=== PATIENT | male | born 2000 | race Caucasian/White ===

== ENCOUNTER → 2019-01-15 | Outpatient (CLI) | payer BC ==
[~2019-01-15] MED LIST: ESCI20TA38 PO; PANT40TA65 PO
[2019-01-15 10:53] LABS: PLATELET COUNT, AUTOMATED 296 K/uL (150-450)
--- NOTE | 2019-01-15 14:09 | RADIOLOGY IMAGING REPORT ---
FACILITY: [facility] PATIENT NAME: Lamberto Lopez : 2000 MR: [id number] V: [id number] EXAM DATE: ORDERING PHYSICIAN: ANTHONY SCHMITZ TECHNOLOGIST: Location: [facility] - [place] Patient: Lamberto Lopez : 2000 Visit/Account:[id number] Date of Sevice: 01/15/2019 Exam type: KUB SINGLE VIEW ABDOMEN History: abdominal pain and bloating x1 year Comparison: None. Findings: There is a nonspecific bowel gas pattern present. There is no gross evidence organomegaly or patholo gic intra-abdominal calcifications. The visualized bones are unremarkable for age. IMPRESSION: 1. Nonspecific bowel gas pattern Report Dictated By: Hanna Dozier MD at 01/15/2019 1:54 PM Report E-Signed By: Hanna Dozier MD at 01/15/2019 2:05 PM WSN:[email or web address]
== END ==
LOC: LAB 10:37
PROVIDERS: ATTEND Internal Medicine
DX: F41.9 Anxiety disorder, unspecified (principal); F32.9 Major depressive disorder, single episode, unspecified; R10.9 Unspecified abdominal pain; K21.9 Gastro-esophageal reflux disease without esophagitis
CPT/HCPCS: 36415; 74018; 81001; 82040; 82150; 82247; 82310; 82374; 82435; 82565; 82947; 83690; 84075; 84132; 84155; 84295; 84443; 84450; 84460; 84520; 85025

== ENCOUNTER → 2019-01-21 | Outpatient (REF) | payer BC | LOC: ZZSTITCHES 18:59 | PROVIDERS: ATTEND Physician Assistant | DX: R10.816 Epigastric abdominal tenderness (principal); R19.7 Diarrhea, unspecified | CPT/HCPCS: 87338 ==

== ENCOUNTER 2019-01-24 14:46 | Emergency (ER) | payer BC ==
--- NOTE | 2019-01-24 15:05 | ER Report ---
History and Physical Time Seen By MD: 15:05 HPI/ROS CHIEF COMPLAINT: Near syncopal episode 2 HISTORY OF PRESENT ILLNESS: 18-year-old male patient presents to emergency room with complaint of near several episodes 2. Patient states that he started feeling funny when he was driving to work. He states when he got work he informed us coordinate that he was not doing well. He states that he had something to drink and passed out. He states he did not fall completely. However he then went to the bathroom. He states that these in the bathroom he fell getting off the toilet. He states that at the behest of his coworkers he did come in the emergency room to be evaluated. Patient states that he has not been eating or drinking well for the past several weeks. He states that he has problems with his abdomen. He states his started on Lexapro and a PPI to help with that. He states that he has had very mild improvement since starting medications. He states he still struggles to eat or drink much throughout the day. He states that typically he will eat a hot pocket or something of that size and held typically be it throughout the day. REVIEW OF SYSTEMS: Respiratory: No cough, no dyspnea. Cardiovascular: No chest pain, no palpitations. Gastrointestinal: As noted above Musculoskeletal: No back pain. Allergies: Coded Allergies: No Known Allergies (Verified Allergy, Unknown, 01/24/19) Home Meds Active Scripts Hydroxyzine Hcl (HYDROXYZINE HCL) 25 Mg Tablet, 25 MG PO Q6H PRN for ANXIETY, #30 TAB Prov:GILLIAN NETTLES 01/24/19 Escitalopram Oxalate (LEXAPRO) 20 Mg Tablet, 10 MG PO QDAY, #30 TAB 2 Refills Prov:ANTHONY SCHMITZ MD 01/16/19 Pantoprazole Sodium (PANTOPRAZOLE SODIUM) 40 Mg Tablet.dr, 40 MG PO QDAY, #30 TAB 2 Refills Prov:ANTHONY SCHMITZ MD 01/16/19 Reported Medications Promethazine Hcl (PROMETHAZINE HCL) 25 Mg Tablet, 25 MG PO Q8H PRN for NAUSEA, TAB 01/24/19 Escitalopram Oxalate (LEXAPRO) 20 Mg Tablet, 10 MG PO QDAY, TAB 01/24/19 Past Medical/Surgical History Patient has a past medical history of irregular heartbeat, marijuana use, alcohol use, depression, generalized anxiety disorder. Patient has a surgical history of was some teeth removal. Reviewed Nurses Notes: Yes Hx Substance Use Disorder: Yes (MARIJUANA ) Hx Alcohol Use: Yes (OCCASIONALLY 1 TIME MONTHLY ) Constitutional Vital Sign - Last 24 Hours 01/24/19 01/24/19 01/24/19 01/24/19 14:59 15:16 15:20 15:46 Temp 97.5 Pulse 77 74 75 Resp 12 B/P (MAP) 132/93 (106) 132/93 Pulse Ox 96 96 93 O2 Delivery Room Air 01/24/19 01/24/19 01/24/19 01/24/19 15:51 16:02 16:21 16:30 Pulse 74 84 B/P (MAP) 116/77 (90) 124/80 (95) Pulse Ox 97 97 01/24/19 01/24/19 16:51 17:00 Pulse 66 B/P (MAP) 117/70 (86) Pulse Ox 93 Physical Exam General Appearance: The patient is alert, has no immediate need for airway protection and no current signs of toxicity. Respiratory: Chest is non tender, lungs are clear to auscultation. Cardiac: regular rate and rhythm Gastrointestinal: Abdomen is soft and non tender, no masses, bowel sounds normal. Musculoskeletal: Neck: Neck is supple and non tender. Extremities have full range of motion and are non tender. Skin: No rashes or lesions. DIFFERENTIAL DIAGNOSIS: After history and physical exam differential diagnosis was considered for syncope including but not limited to vasovagal syncope, arrhythmia, dehydration, and blood loss. Medical Decision Making Data Points Result Diagram: 01/24/19 1608 01/24/19 1608 Laboratory Hematology Test 01/24/19 14:59 01/24/19 16:08 Urine Color Colorless Urine Clarity Clear Urine pH 7.0 pH (4.8-9.5) Urine Specific [place] 1.002 Urine Protein Negative mg/dL (NEGATIVE) Urine Glucose (UA) Negative mg/dL (NEGATIVE) Urine Ketones Negative mg/dL (NEGATIVE) Urine Blood Small (NEGATIVE) Urine Nitrite Negative (NEGATIVE) Urine Bilirubin Negative (NEGATIVE) Urine Urobilinogen Negative mg/dL (0.2-1.9) Urine Leukocyte Esterase Negative (NEGATIVE) Urine RBC None /HPF (0-2/HPF) Urine WBC <1 /HPF (0-5/HPF) Urine Squamous Epithelial Cells Few /LPF (</=FEW) Urine Bacteria Negative /HPF (NONE-FEW) Urine Mucus None /HPF (NONE-FEW) Red Blood Count 5.70 M/uL (4.00-5.60) Mean Corpuscular Volume 86.7 fL (80.0-96.0) Mean Corpuscular Hemoglobin 29.9 pg (26.0-33.0) Mean Corpuscular Hemoglobin Concent 34.5 g/dL (32.0-36.0) Red Cell Distribution Width 14.2 % (11.5-14.5) Mean Platelet Volume 7.9 fL (7.2-11.1) Neutrophils (%) (Auto) 65.5 % (39.4-72.5) Lymphocytes (%) (Auto) 27.8 % (17.6-49.6) Monocytes (%) (Auto) 6.2 % (4.1-12.4) Eosinophils (%) (Auto) 0.1 % (0.4-6.7) Basophils (%) (Auto) 0.4 % (0.3-1.4) Nucleated RBC Relative Count (auto) 0.0 /100WBC Neutrophils # (Auto) 5.7 K/uL (2.0-7.4) Lymphocytes # (Auto) 2.4 K/uL (1.3-3.6) Monocytes # (Auto) 0.5 K/uL (0.3-1.0) Eosinophils # (Auto) 0.0 K/uL (0.0-0.5) Basophils # (Auto) 0.0 K/uL (0.0-0.1) Nucleated RBC Absolute Count (auto) 0.00 K/uL Sodium Level 143 mmol/L (137-145) Potassium Level 3.9 mmol/L (3.5-5.0) Chloride Level 108 mmol/L (98-107) Carbon Dioxide Level 23 mmol/L (22-30) Blood Urea Nitrogen 11 mg/dl (9-21) Creatinine 0.70 mg/dl (0.66-1.25) Glomerular Filtration Rate Calc > 60.0 Random Glucose 88 mg/dl (75-110) Calcium Level 10.0 mg/dl (8.4-10.2) Total Bilirubin 1.1 mg/dl (0.2-1.3) Aspartate Amino Transf (AST/SGOT) 21 U/L (0-35) Alanine Aminotransferase (ALT/SGPT) 12 U/L (0-56) Alkaline Phosphatase 81 U/L (0-126) Total Protein 8.1 g/dl (6.3-8.2) Albumin 5.0 g/dl (3.5-5.0) Lipase 64 U/L (23-300) Chemistry Test 01/24/19 14:59 01/24/19 16:08 Urine Color Colorless Urine Clarity Clear Urine pH 7.0 pH (4.8-9.5) Urine Specific [place] 1.002 Urine Protein Negative mg/dL (NEGATIVE) Urine Glucose (UA) Negative mg/dL (NEGATIVE) Urine Ketones Negative mg/dL (NEGATIVE) Urine Blood Small (NEGATIVE) Urine Nitrite Negative (NEGATIVE) Urine Bilirubin Negative (NEGATIVE) Urine Urobilinogen Negative mg/dL (0.2-1.9) Urine Leukocyte Esterase Negative (NEGATIVE) Urine RBC None /HPF (0-2/HPF) Urine WBC <1 /HPF (0-5/HPF) Urine Squamous Epithelial Cells Few /LPF (</=FEW) Urine Bacteria Negative /HPF (NONE-FEW) Urine Mucus None /HPF (NONE-FEW) White Blood Count 8.7 k/uL (4.5-11.0) Red Blood Count 5.70 M/uL (4.00-5.60) Hemoglobin 17.0 g/dL (14.0-18.0) Hematocrit 49.4 % (42.0-52.0) Mean Corpuscular Volume 86.7 fL (80.0-96.0) Mean Corpuscular Hemoglobin 29.9 pg (26.0-33.0) Mean Corpuscular Hemoglobin Concent 34.5 g/dL (32.0-36.0) Red Cell Distribution Width 14.2 % (11.5-14.5) Platelet Count 299 K/uL (150-450) Mean Platelet Volume 7.9 fL (7.2-11.1) Neutrophils (%) (Auto) 65.5 % (39.4-72.5) Lymphocytes (%) (Auto) 27.8 % (17.6-49.6) Monocytes (%) (Auto) 6.2 % (4.1-12.4) Eosinophils (%) (Auto) 0.1 % (0.4-6.7) Basophils (%) (Auto) 0.4 % (0.3-1.4) Nucleated RBC Relative Count (auto) 0.0 /100WBC Neutrophils # (Auto) 5.7 K/uL (2.0-7.4) Lymphocytes # (Auto) 2.4 K/uL (1.3-3.6) Monocytes # (Auto) 0.5 K/uL (0.3-1.0) Eosinophils # (Auto) 0.0 K/uL (0.0-0.5) Basophils # (Auto) 0.0 K/uL (0.0-0.1) Nucleated RBC Absolute Count (auto) 0.00 K/uL Glomerular Filtration Rate Calc > 60.0 Calcium Level 10.0 mg/dl (8.4-10.2) Total Bilirubin 1.1 mg/dl (0.2-1.3) Aspartate Amino Transf (AST/SGOT) 21 U/L (0-35) Alanine Aminotransferase (ALT/SGPT) 12 U/L (0-56) Alkaline Phosphatase 81 U/L (0-126) Total Protein 8.1 g/dl (6.3-8.2) Albumin 5.0 g/dl (3.5-5.0) Lipase 64 U/L (23-300) Urinalysis Test 01/24/19 14:59 Urine Color Colorless Urine Clarity Clear Urine pH 7.0 pH (4.8-9.5) Urine Specific [place] 1.002 Urine Protein Negative mg/dL (NEGATIVE) Urine Glucose (UA) Negative mg/dL (NEGATIVE) Urine Ketones Negative mg/dL (NEGATIVE) Urine Blood Small (NEGATIVE) Urine Nitrite Negative (NEGATIVE) Urine Bilirubin Negative (NEGATIVE) Urine Urobilinogen Negative mg/dL (0.2-1.9) Urine Leukocyte Esterase Negative (NEGATIVE) Urine RBC None /HPF (0-2/HPF) Urine WBC <1 /HPF (0-5/HPF) Urine Squamous Epithelial Cells Few /LPF (</=FEW) Urine Bacteria Negative /HPF (NONE-FEW) Urine Mucus None /HPF (NONE-FEW) EKG/Imaging Imaging Exam type: CHEST PA LAT History: Syncope Comparison: None. Findings: The lungs are free of acute effusions, infiltrates or edema. There is no evidence of a pneumothorax or pneumomediastinum. The cardiac silhouette is normal in size. The trachea is in midline. IMPRESSION: 1. No acute cardiopulmonary process is seen Report Dictated By: Hanna Dozier MD at 01/24/2019 3:59 PM Report E-Signed By: Hanna Dozier MD at 01/24/2019 4:00 PM ED Course/Re-evaluation ED Course Patient was admitted to exam room, history and physical were obtained. Differential diagnoses were considered. On examination lungs are clear, heart is regular, abdomen soft nontender. A CBC, CMP, chest x-ray, EKG were done. Lab results and imaging results were unremarkable. I discussed the findings with the patient. I did explain to him that I believe that his issues are more related to his anxiety. I think that it was anxiety that caused him to have numbness. We also discussed the episodes of near-syncope as being related to vasovagal s yncope. Patient verbalized understanding and agreement. He states he did feel significantly better after the fluids and the workup. We will go ahead and discharge patient home. I. He is to return if condition worsens. I would like him follow-up with his primary care provider in the next week. Patient verbalized understanding and agreement with plan. Decision to Disposition Date: Jan 24, 2019 Decision to Disposition Time: 17:14 Depart Departure Latest Vital Signs Vital Signs Date Time Temp Pulse Resp B/P (MAP) Pulse Ox O2 Delivery O2 Flow Rate FiO2 01/24/19 17:00 117/70 (86) 01/24/19 16:51 66 93 01/24/19 15:20 97.5 12 Room Air Impression: Primary Impression: Anxiety Condition: Improved Disposition: HOME OR SELF-CARE Referrals: ANTHONY SCHMITZ MD (PCP) New Scripts Hydroxyzine Hcl (HYDROXYZINE HCL) 25 Mg Tablet 25 MG PO Q6H PRN for ANXIETY, #30 TAB Prov: GILLIAN NETTLES 01/24/19 Patient Instructions: Anxiety (ED) Additional Instructions: Get plenty of rest. Increase fluid intake. Try to use your relaxation techniques. Return to the ER if condition worsens. Follow up with your primary care provider in the next 1-2 weeks. GILLIAN NETTLES Jan 24, 2019 15:05
[2019-01-24] MEDS ORDERED: ESCI20TA38 PO (15:19)
[2019-01-24] MEDS ORDERED: PROM-110 PO (15:19)
[2019-01-24] MEDS ORDERED: NS(*) 0.9% 1000 ML BAG 1,000 ML IV ONE (15:33)
--- NOTE | 2019-01-24 16:05 | RADIOLOGY IMAGING REPORT ---
FACILITY: PATIENT NAME: Lamberto Lopez : 2000 MR: [id number] V: [id number] EXAM DATE: [id number] ORDERING PHYSICIAN: GILLIAN NETTLES TECHNOLOGIST: Location: [facility] - [place] Patient: Lamberto Lopez : 2000 Visit/Account:[id number] Date of Sevice: 01/24/2019 Exam type: CHEST PA LAT History: Syncope Comparison: None. Findings: The lungs are free of acute effusions, infiltrates or edema. There is no evidence of a pneumothorax or pneumomediastinum. The cardiac silhouette is normal in size. The trachea is in midline. IMPRESSION: 1. No acute cardiopulmonary process is seen Report Dictated By: Hanna Dozier MD at 01/24/2019 3:59 PM Report E-Signed By: Hanna Dozier MD at 01/24/2019 4:00 PM WSN:[email or web address]
[2019-01-24 16:18] LABS: PLATELET COUNT, AUTOMATED 299 K/uL (150-450)
--- NOTE | 2019-01-24 16:41 | EKG ---
FACILITY: [facility] PATIENT NAME: JOSE DE LEÓN : [id number] MR: [id number] V: [id number] EXAM DATE: ORDERING PHYSICIAN: GILLIAN NETTLES TECHNOLOGIST: Test Reason : syncope Blood Pressure : / mmHG Vent. Rate : 074 BPM Atrial Rate : 074 BPM P-R Int : 138 ms QRS Dur : 090 ms QT Int : 422 ms P-R-T Axes : 077 090 072 degrees QTc Int : 468 ms Normal sinus rhythm Normal ECG No previous ECGs available Confirmed by Wilbur Montemayor ([id number]) on 01/24/2019 7:28:57 PM Referred By: Confirmed By:Wilbur Garcia
[2019-01-24 17:00] VITALS: BP 117/70
[2019-01-24] MEDS ORDERED: HYDR-4225 PO (17:13)
== END 2019-01-24 17:24 | disposition home or self-care (01) ==
LOC: ER 15:08
DX: F41.9 Anxiety disorder, unspecified (principal); R56.9 Unspecified convulsions
CPT/HCPCS: 71046; 81001; 83690; 85025; 93005; 96360; 99284; J7030; 82040; 82247; 82310; 82374; 82435; 82565; 82947; 84075; 84132; 84155; 84295; 84450; 84460; 84520

== ENCOUNTER 2019-01-27 13:36 | Emergency (ER) | payer BC ==
[~2019-01-27 13:36] MED LIST changes: +HYDR-4225 PO; +PROM-110 PO
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
[2019-01-27 15:03] LABS: PLATELET COUNT, AUTOMATED 287 K/uL (150-450)
[2019-01-27 16:00] VITALS: BP 135/90
[2019-01-28] MEDS ORDERED: LACT1CAP4 PO (13:03)
== END 2019-01-27 16:06 ==
LOC: ER 13:48
DX: F41.9 Anxiety disorder, unspecified (principal); F32.9 Major depressive disorder, single episode, unspecified; R45.851 Suicidal ideations
CPT/HCPCS: 80305; 80320; 80329; 81001; 82040; 82247; 82310; 82374; 82435; 82565; 82947; 83735; 84075; 84132; 84155; 84295; 84443; 84450; 84460; 84520; 85025; 99284

== ENCOUNTER 2019-01-27 15:42 | Inpatient (IN) | payer BC ==
[~2019-01-27] VITALS: Ht 170.2 cm; Wt 57.2 kg
[2019-01-27] MEDS ORDERED: ACETAMINOPHEN 325 MG TAB PO PRN (16:05)
[2019-01-27] MEDS ORDERED: MAG HYD/AL HYD/SIMETH 30ML UDC PO PRN (16:05)
[2019-01-27 16:25] VITALS: BP 115/73
[2019-01-27] MEDS ORDERED: NICOTINE CARTRIDGE 1 EA PO PRN (16:25)
[2019-01-27] MEDS: NICOTINE INH SYSTEM 10 MG/INH INH PRN (16:59)
[2019-01-27] MEDS: hydrOXYzine PAMOATE 25 MG CAP PO PRN (21:02)
[2019-01-28 06:14] VITALS: BP 99/57
[2019-01-28] MEDS: MULTIVITAMINS TAB PO SCH (09:03)
[2019-01-28] MEDS: PANTOPRAZOLE SOD 40 MG TABEC PO SCH (09:03)
[2019-01-28] MEDS: ESCITALOPRAM OXALATE 10 MG TAB PO SCH (09:03)
[2019-01-28 11:04] VITALS: BP 97/62
[2019-01-28] MEDS ORDERED: PROMETHAZINE HCL 25 MG TAB PO PRN (11:45)
[2019-01-28] MEDS ORDERED: LACT1CAP4 PO (13:03)
[2019-01-28] MEDS: NICOTINE INH SYSTEM 10 MG/INH INH PRN ×2 (16:57→19:23)
[2019-01-28 21:56] VITALS: BP 128/87
--- NOTE | 2019-01-28 22:18 | HISTORY AND PHYSICAL ---
DATE OF ADMISSION: January 27, 2019 ATTENDING PHYSICIAN Monique Delgado MD The patient was interviewed on 01/28/2019 at 11 a.m. for this history and physical. CHIEF COMPLAINT "I was worried that I was going to kill myself by taking an overdose on hydroxyzine." HISTORY OF PRESENT ILLNESS This is the first psychiatric hospitalization for this 18-year-old male who has a history of depression, anxiety, and borderline personality, and who is here on a voluntary basis for suicidal ideation. The patient says that over the past three years, he has struggled with depression which comes and goes, and when his depression is significant, he often gets suicidal thoughts. For the past few days, he has been more depressed and having thoughts of taking an overdose. He has been thinking more about and thinking that if he does not kill himself now, he still might when he is an adult, kind of like Eddie Kirk. He is currently rating his depression at a 7/10 and anxiety at a 9/10. He says his depression and anxiety both get worse at night, and he has difficulty sleeping. He reports panic attacks at times where he breaks out in hives. He has recently had a lot of trouble with an upset stomach, and he is wondering if that may be in part due to anxiety and depression. He has been a significant daily cannabis user for a couple of years now, and two weeks ago, he stopped using cannabis because the doctor thought that his abdominal pain might be due to cannabis hyperemesis. He says his GI problems have gotten a little bit better since cutting down on cannabis, but they are still significant with a lot of dry heaves and abdominal pain. PAST PSYCHIATRIC HISTORY The patient has been in therapy since he was young on and off. He has seen Airadne Walden, PhD, when he was young and also in [employer] and in high school and for three or four sessions last fall. [facility] also [facility] to [facility] and has seen Melida Parmar for medications, most recently last fall. As a youth, he was diagnosed with ADHD and took Ritalin for a while, but none recently. When he was in [employer], he used to cut extensively on his thighs, but has not engaged in cutting behaviors since then. He had one suicide attempt at the age of 14 when he took an overdose of his Lexapro and his stimulant. He did not tell anyone until about 12 hours after the overdose and says he never had any adverse effects from it and never received any treatment for it. He has no prior psychiatric hospitalizations. He is not currently in any active outpatient treatment. PAST MEDICAL HISTORY As above, digestive problems for the past several weeks. He has been to Urgent Care and also to see Dr. Barraza. He has been worked up for H. pylori, and he had a KUB x-ray which was negative. He has an appointment to have his gallbladder looked at. It was thought that he might be suffering from cannabis hyperemesis, but his symptoms are still significant, although somewhat improved since stopping cannabis. MEDICATIONS 1. Pantoprazole. 2. Promethazine. 3. Lexapro 10 mg was restarted two weeks ago by Dr. Barraza. ALLERGIES NKDA. FAMILY PSYCHIATRIC HISTORY His mother takes Abilify. He has two aunts who take Abilify. His father formerly took Zoloft. SOCIAL HISTORY The patient was born and raised in [place]. His parents were never . He was raised by his mother. His father lives here in [place], but he does not have a good relationship with him. He has one half-sister. He graduated high school in 2012 with about a 3.0 GPA. He took a year off. Then, he started as a freshman at in the fall of 2017, but he dropped out. His mother is remarried and now lives in [place], [place]. He has a good relationship with her. He considers himself heterosexual. 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 ABUSE HISTORY Never. SUBSTANCE ABUSE HISTORY Marijuana daily for three years, recently cut down. His last marijuana was four days ago. He occasionally drinks two beers or two wine coolers one time per month. He denies any other substance abuse. PHYSICAL EXAMINATION Please see the emergency room physician's report. VITAL SIGNS: Temperature 87.7, pulse 78, respiratory rate 14, blood pressure 115/73, pulse ox is 94% on room air. LABORATORY STUDIES CBC within normal limits. Chemistry panel within normal limits. TSH normal at 1.82. Urinalysis is within normal limits except for urobilinogen 2.0. Toxicology screen is positive for cannabinoids. Serum alcohol is nil. MENTAL STATUS EXAMINATION He is a thin young man who was dressed in hospital scrubs. He had an emesis basin with him, and he had dry heaves several times during the exam. Also once during the exam, he asked to be excused to go to the restroom. He seemed to be in moderate distress with his GI issues, although he was able to cooperate and participate in our discussion. Speech was normal in rate, tone, and volume. Mood and affect were depressed. Thought process is logical and goal directed. Thought content is positive for vague suicidal ideation with thoughts about taking an overdose. He denies homicidal ideation. There are no auditory or visual hallucinations. There are no delusions. He is alert and fully oriented to person, place, time, and situation. Memory is intact for immediate, recent, and remote recall. Intelligence is average based on interview. Insight and judgment are fair. IMPRESSION 1. Persistent depressive disorder with suicidal ideation. 2. Generalized anxiety disorder. 3. Borderline personality disorder. PLAN The patient is admitted to [facility] and being maintained on suicide precautions. He will attend individual and group therapies. We will emphasize working on DBT skills. We will continue his current medications. We will arrange outpatient therapy hopefully with a DBT outpatient program which would include a skills group. His estimated length of stay will be three to five days. MICHAEL
[2019-01-29] MEDS: hydrOXYzine PAMOATE 25 MG CAP PO PRN ×2 (00:18→21:14)
--- NOTE | 2019-01-29 00:19 | NUR ---
Pt has been observed up and down in his room several times doing everything but laying down and trying to go to sleep. He came out to the desk and asked for anything that could help him sleep. Pt was given Vistaril 50mg PO and admonished that he needs to put some effort into trying to go to sleep as well as having some consideration for his roommate who is also trying to sleep.
[2019-01-29 05:41] VITALS: BP 117/81
[2019-01-29] MEDS: PANTOPRAZOLE SOD 40 MG TABEC PO SCH (08:09)
[2019-01-29] MEDS: ESCITALOPRAM OXALATE 10 MG TAB PO SCH (08:09)
[2019-01-29] MEDS: MULTIVITAMINS TAB PO SCH (08:10)
[2019-01-29] MEDS: NICOTINE INH SYSTEM 10 MG/INH INH PRN ×3 (08:30→17:41)
--- NOTE | 2019-01-29 13:25 | BHS Progress Note ---
[facility] - Subjective Progress Notes Subjective Pt seen in treatment team, he declined our encouragement to have mother or father involved by speaker phone-- though says he has been in touch with both of them. He noted that he and father had a "really good phone call last night, we hadn't had a good talk like that in a while." Pt still depressed, with low energy, low motivation, passive wishes. He did seen encouraged by our discussion of DBT, and is interested in pursuing this as outpatient. We called Ratna Bedolla, and she does have an opening tomorrow for an outpatient intake appointment for her DBT individual and group therapies. So tentative DC tomorrow if he remains stable. His GI symptoms are much better today, no further nausea. Suicidal Ideation: None Homicidal Ideation: None [facility] - Objective Physical Exam Vital Signs Vital Signs 01/29/19 05:41 Temp 98.2 Pulse 83 Resp 16 B/P (MAP) 117/81 (93) Pulse Ox 95 O2 Delivery Room Air Muscle Strength and Tone: WNL Gait and Station: Steady [facility] Medications Reviewed: Side Effects, Benefits of Medication, Risks Allergies Reviewed: Yes Mental Status Exam General Appearance: Casual, Cooperative, Polite, Good Interaction Speech: Clear, Spontaneous, Normal Rate, Normal Rhythm, Normal Volume, Normal Tone Mood: Dysthmic/Depressed Affect: Sad Thought Process: Organized, Logical, Goal Directed Thought Content: No Suicidal Ideation, No Homicidal Ideation, No Delusions, No Auditory Halllucinations, No Visual Hallucinations, No Thought Broadcasting, No Ideas of Reference, No Obsessions, No Compulsions, No Other Sensorium: Clear Cognition: Alert & Oriented-Person, Alert & Oriented-Place, Alert & Oriented- Time, Bygvk-Shnafmvw-Ueljlqdhg Memory: Immediate, Recent, Remote Intelligence: Average Insight Judgment: Fair [facility] Assessment and Plan Lyyp-hp-Srhi Encounter Date: Jan 29, 2019 Xzra-[id number]-Bmxt Encounter Time: 09:00 [facility] Plan: Necessary Precautions, Individual/Group Therapy, Admin/Titrate Meds, Educate Patient Tobacco Medications: Started Multpiple Antipsychotics Used: No Problems: (1) Cluster B personality disorder Optional Permanent Comment: Borderline personality disorder Last Edited By: Rachel Delgado on Jan 29, 2019 13:24 (2) Anxiety and depression (3) Suicidal ideation Status: RACHEL Dempsey MD Jan 29, 2019 13:25
[2019-01-29 14:38] VITALS: BP 138/86
[2019-01-29 22:29] VITALS: BP 111/81
[2019-01-30 06:16] VITALS: BP 98/62
[2019-01-30] MEDS: MULTIVITAMINS TAB PO SCH (08:13)
[2019-01-30] MEDS: ESCITALOPRAM OXALATE 10 MG TAB PO SCH (08:13)
[2019-01-30] MEDS: PANTOPRAZOLE SOD 40 MG TABEC PO SCH (08:13)
[2019-01-30] MEDS ORDERED: NIC10R INH (09:08)
[2019-01-30] MEDS ORDERED: NICOTROL CARTRIDGE PO (09:09)
--- NOTE | 2019-01-30 12:54 | BHS Discharge Summary ---
[facility] Discharge Summary Ltfv-jq-[id number] Encounter Date: Jan 30, 2019 Kist-gl-Nwlv Encounter Time: 08:30 Reason-Hosp/Final Diag (DSM-V): (1) Cluster B personality disorder Optional Permanent Comment: Borderline personality disorder Last Edited By: Rachel Danny on Jan 29, 2019 13:24 Hospital Course & Plan: CHIEF COMPLAINT "I was worried that I was going to kill myself by taking an overdose on hydroxyzine." HISTORY OF PRESENT ILLNESS This is the first psychiatric hospitalization for this 18-year-old male who has a history of depression, anxiety, and borderline personality, and who is here on a voluntary basis for suicidal ideation. The patient says that over the past three years, he has struggled with depression which comes and goes, and when his depression is significant, he often gets suicidal thoughts. For the past few days, he has been more depressed and having thoughts of taking an overdose. He has been thinking more about and thinking that if he does not kill himself now, he still might when he is an adult, kind of like Eddie Kirk. He is currently rating his depression at a 7/10 and anxiety at a 9/10. He says his depression and anxiety both get worse at night, and he has difficulty sleeping. He reports panic attacks at times where he breaks out in hives. He has recently had a lot of trouble with an upset stomach, and he is wondering if that may be in part due to anxiety and depression. He has been a significant daily cannabis user for a couple of years now, and two weeks ago, he stopped using cannabis because the doctor thought that his abdominal pain might be due to cannabis hyperemesis. He says his GI problems have gotten a little bit better since cutting down on cannabis, but they are still significant with a lot of dry heaves and abdominal pain. PAST PSYCHIATRIC HISTORY The patient has been in therapy since he was young on and off. He has seen Ariadne Walden, PhD, when he was young and also in [employer] and in high school and for three or four sessions last fall. He [facility] also [facility] to [facility] and has seen Melida Parmar for medications, most recently last fall. As a youth, he was diagnosed with ADHD and took Ritalin for a while, but none recently. When he was in [employer], he used to cut extensively on his thighs, but has not engaged in cutting behaviors since then. He had one suicide attempt at the age of 14 when he took an overdose of his Lexapro and his stimulant. He did not tell anyone until about 12 hours after the overdose and says he never had any adverse effects from it and never received any treatment for it. He has no prior psychiatric hospitalizations. He is not currently in any active outpatient treatment. PAST MEDICAL HISTORY As above, digestive problems for the past several weeks. He has been to Urgent Care and also to see Dr. Barraza. He has been worked up for H. pylori, and he had a KUB x-ray which was negative. He has an appointment to have his gallblad destin looked at. It was thought that he might be suffering from cannabis hyperemesis, but his symptoms are still significant, although somewhat improved since stopping cannabis. MEDICATIONS 1. Pantoprazole. 2. Promethazine. 3. Lexapro 10 mg was restarted two weeks ago by Dr. Barraza. HOSPITAL COURSE Pt was admitted to [facility] and maintained on suicide precautions. We did not change his medications. He participated actively in all treatment modalities including individual and group therapy. We did a lot of psychoeducation re borderline personality and DBT, which he really got very interested in. His GI pain and nausea were much better the last two days. We worked with him on relaxation and deep breathing for "panic attacks." We emphasized importance of sobriety and did education on connection between cannabis and depression. We referred him to Ratna Bedolla for DBT therapy and skills group, and made an appointment with her for 01/30 at 10 am. He never did verbalize any SI during hospital stay, and affect was much brighter by discharge. He was discharged in stable and improved condition to go directly to his outpatient appointment. (2) Anxiety and depression (3) Suicidal ideation Status: Acute Physical Exam Latest Vital Signs Vital Signs 01/30/19 06:16 Temp 98.1 Pulse 48 Resp 14 B/P (MAP) 98/62 (74) Pulse Ox 97 O2 Delivery Room Air Mental Status Exam General Appearance: Casual, Well Groomed, Good Eye Contact, Cooperative, Polite, Good Interaction Speech: Clear, Spontaneous, Normal Rate, Normal Rhythm, Normal Volume, Normal Tone Mood: Euthymic Affect: Full and Appropriate, Anxious (about having to go back to work tomorrow) Thought Process: Organized, Logical, Goal Directed Thought Content: No Suicidal Ideation, No Homicidal Ideation, No Delusions, No Auditory Halllucinations, No Visual Hallucinations, No Thought Broadcasting, No Ideas of Reference, No Obsessions, No Compulsions, No Other Sensorium: Clear Cognition: Alert & Oriented-Person, Alert & Oriented-Place, Alert & Oriented- Time, Ancvu-Uibfqboz-Rwwjmaqsc Memory: Immediate, Recent, Remote Intelligence: Above Average Insight Judgment: Good Departure Item Value Date Time White Blood Count 9.7 k/uL 01/27/19 1454 Red Blood Count 5.56 M/uL 01/27/19 1454 Hemoglobin 16.4 g/dL 01/27/19 1454 Hematocrit 48.6 % 01/27/19 1454 Mean Corpuscular Volume 87.3 fL 01/27/19 1454 Mean Corpuscular Hemoglobin 29.5 pg 01/27/19 145 Mean Corpuscular Hemoglobin Concent 33.8 g/dL 01/27/19 1454 Red Cell Distribution Width 14.0 % 01/27/19 1454 Platelet Count 287 K/uL 01/27/19 1454 Mean Platelet Volume 7.9 fL 01/27/19 1454 Neutrophils (%) (Auto) 64.9 % 01/27/19 1454 Lymphocytes (%) (Auto) 26.8 % 01/27/19 1454 Monocytes (%) (Auto) 7.1 % 01/27/19 1454 Eosinophils (%) (Auto) 0.6 % 01/27/19 1454 Basophils (%) (Auto) 0.6 % 01/27/19 1454 Nucleated RBC Relative Count (auto) 0.0 /100WBC 01/27/19 1454 Neutrophils # (Auto) 6.3 K/uL 01/27/19 1454 Lymphocytes # (Auto) 2.6 K/uL 01/27/19 1454 Monocytes # (Auto) 0.7 K/uL 01/27/19 1454 Eosinophils # (Auto) 0.1 K/uL 01/27/19 1454 Basophils # (Auto) 0.1 K/uL 01/27/19 1454 Nucleated RBC Absolute Count (auto) 0.00 K/uL 01/27/19 1454 Sodium Level 140 mmol/L 01/27/19 1454 Potassium Level 4.0 mmol/L 01/27/19 1454 Chloride Level 107 mmol/L 01/27/19 1454 Carbon Dioxide Level 23 mmol/L 01/27/19 1454 Blood Urea Nitrogen 14 mg/dl 01/27/19 1454 Creatinine 0.70 mg/dl 01/27/19 1454 Glomerular Filtration Rate Calc > 60.0 01/27/19 1454 Random Glucose 79 mg/dl 01/27/19 1454 Calcium Level 9.8 mg/dl 01/27/19 1454 Magnesium Level 2.0 mg/dl 01/27/19 1454 Total Bilirubin 1.2 mg/dl 01/27/19 1454 Aspartate Amino Transf (AST/SGOT) 17 U/L 01/27/19 1454 Alanine Aminotransferase (ALT/SGPT) 22 U/L 01/27/19 1454 Alkaline Phosphatase 81 U/L 01/27/19 1454 Total Protein 7.9 g/dl 01/27/19 1454 Albumin 5.0 g/dl 01/27/19 1454 Amylase Level 54 U/L 01/15/19 1044 Lipase 64 U/L 01/24/19 1608 Thyroid Stimulating Hormone (TSH) 1.82 uIU/ml 01/27/19 1454 Urine Color Yellow 01/27/19 1341 Urine Clarity Clear 01/27/19 1341 Urine pH 7.0 pH 01/27/19 1341 Urine Specific [place] 1.020 01/27/19 1341 Urine Protein Negative mg/dL 01/27/19 1341 Urine Glucose (UA) Negative mg/dL 01/27/19 1341 Urine Ketones Negative mg/dL 01/27/19 1341 Urine Blood Negative 01/27/19 1341 Urine Nitrite Negative 01/27/19 1341 Urine Bilirubin Negative 01/27/19 1341 Urine Urobilinogen 2.0 mg/dL 01/27/19 1341 Urine Leukocyte Esterase Negative 01/27/19 1341 Urine RBC None /HPF 01/27/19 1341 Urine WBC 1 /HPF 01/27/19 1341 Urine Squamous Epithelial Cells Few /LPF 01/27/19 1341 Urine Bacteria Negative /HPF 01/27/19 1341 Urine Hyaline Casts Few /LPF 07/20/17 1611 Urine Mucus Few /HPF 01/27/19 1341 Salicylates Level < 10 mg/L 01/27/19 1454 Salicylate Last Dose Date unk 01/27/19 1454 Urine Opiates Screen Negative 01/27/19 1341 Acetaminophen Level < 10 ug/ml 01/27/19 1454 Urine Barbiturates Screen Negative 01/27/19 1341 Ur Tricyclic Antidepressants Screen Negative 01/27/19 1341 Urine Phencyclidine Screen Negative 01/27/19 1341 Urine Amphetamines Screen Negative 01/27/19 1341 Urine Benzodiazepines Screen Negative 01/27/19 1341 Urine Cocaine Screen Negative 01/27/19 1341 Urine Cannabinoids Screen Positive 01/27/19 1341 Serum Alcohol < 10 mg/dl 01/27/19 1454 Condition: Improved Discharge to: Home Discharge Instructions Home Meds Active Scripts Pantoprazole Sodium (PANTOPRAZOLE SODIUM) 40 Mg Tablet.dr, 40 MG PO QDAY, #30 TAB 2 Refills Prov:ANTHONY BARRAZA MD 01/16/19 Reported Medications [Nicotrol Cartridge] No Conflict Check, 1 EA PO PRN PRN for NICOTINE REPLACEMENT 01/30/19 Nicotine (NICOTROL) 10 Mg/Inh Ctr, 10 MG INH PRN PRN for NICOTINE REPLACEMENT 01/30/19 Lactobacillus Acidophilus (PROBIOTIC) 1 Each Capsule, 1 EACH PO DAILY, CAPSULE 01/28/19 Promethazine Hcl (PROMETHAZINE HCL) 25 Mg Tablet, 25 MG PO Q8H PRN for NAUSEA, TAB 01/24/19 Escitalopram Oxalate (LEXAPRO) 20 Mg Tablet, 10 MG PO QDAY, TAB 01/24/19 Discontinued Scripts Hydroxyzine Hcl (HYDROXYZINE HCL) 25 Mg Tablet, 25 MG PO Q6H PRN for ANXIETY, #30 TAB Prov:LUCIANO NETTLESSSE PHYSICAL THERAPIST TECHNICIAN 01/24/19 Escitalopram Oxalate (LEXAPRO) 20 Mg Tablet, 10 MG PO QDAY, #30 TAB 2 Refills Prov:ANTHONY BARRAZA MD 01/16/19 Multpiple Antipsychotics Used: No Diet: Regular Activity: As Tolerated Copies to: ANTHONY BARRAZA MD ; RACHEL GORDON MD Jan 30, 2019 12:54
== END 2019-01-30 09:22 | disposition home or self-care (01) | DRG 881 ==
LOC: BHS 15:42
PROVIDERS: ADMIT Psychiatry & Neurology Psychiatry; ATTEND Psychiatry & Neurology Psychiatry
DX: F34.1 Dysthymic disorder (principal); R45.851 Suicidal ideations; R11.0 Nausea; F41.1 Generalized anxiety disorder; F60.3 Borderline personality disorder; Z86.59 Personal history of other mental and behavioral disorders; R10.9 Unspecified abdominal pain
CPT/HCPCS: Q0177